=== PATIENT | male | born 1960 | race Two or more races ===

== ENCOUNTER 2019-09-09 06:32 | Emergency (ER) | payer OTHER ==
[~2019-09-09] VITALS: Ht 195.6 cm; Wt 128.6 kg
[2019-09-09] MEDS ORDERED: HYDR25TA6 PO (06:39)
[2019-09-09] MEDS ORDERED: ENAL5TAB PO (06:39)
--- NOTE | 2019-09-09 06:55 | NUR ---
REPORT RECEIVED FROM CADEN DAVENPORT.
[2019-09-09] MEDS ORDERED: KETOROLAC 30 MG/1 ML ONE (07:26)
[2019-09-09] MEDS ORDERED: KETOROLAC 30 MG/1 ML IM ONE (07:30)
--- NOTE | 2019-09-09 07:30 | NUR ---
PT MEDICATED PER EMAR. PT TOLERATED WELL. PT'S AOX4. RESPS EVEN AND UNLABORED.
[2019-09-09 07:56] LABS: BASOPHILS # (AUTO) 0.04 x10^3/uL (0-0.1); BASOPHILS % (AUTO) 1 % (0-1); EOSINOPHILS # (AUTO) 0.23 x10^3/uL (0-0.4); EOSINOPHILS % (AUTO) 4 % (1-7); LYMPHOCYTES # (AUTO) 1.92 x10^3/uL (1-3.4); LYMPHOCYTES % (AUTO) 36 % (22-44); MD NO; MEAN CORPUSCULAR HEMOGLOBIN 30.8 pg (27.5-34.5); MEAN CORPUSCULAR HGB CONC 32.7 g/dL (33.2-36.2); MEAN CORPUSCULAR VOLUME 94.3 fL (81-97); MEAN PLATELET VOLUME 7.4 fL (7.4-10.4); MONOCYTES # (AUTO) 0.46 x10^3/uL (0.2-0.8); MONOCYTES % (AUTO) 9 % (2-9); NEUTROPHILS # (AUTO) 2.73 x10^3/uL (1.8-6.8); NEUTROPHILS % (AUTO) 51 % (42-75); PLATELET COUNT 278 x10^3/uL (130-400); RED BLOOD COUNT 4.43 x10^6/uL (4.38-5.82); RED CELL DISTRIBUTION WIDTH 15.2 % (9.4-14.8)
[2019-09-09 08:02] VITALS: BP 154/106
--- NOTE | 2019-09-09 08:06 | NUR ---
pt resting in [facility]. pt stated"pain is almost gone". pt's aox4. resps even and unlabored. bp/spo2 monitors in place. call light within reach.
[2019-09-09 08:08] LABS: ANION GAP 7 mmol/L (5-15); CALCIUM 9.1 mg/dL (8.5-10.1); CHLORIDE 108 mmol/L (98-107); CREATININE 1.05 mg/dL (0.7-1.3)
[2019-09-09 08:12] LABS: TROPONIN I < 0.015 ng/mL (0.000-0.045)
--- NOTE | 2019-09-09 08:56 | NUR ---
Patient given discharge instructions and they have confirmed that they understand the instructions. Patient ambulatory with steady gait.
== END 2019-09-09 08:57 | disposition home or self-care (01) ==
LOC: ED 07:20
DX: S46.012A Strain of muscle(s) and tendon(s) of the rotator cuff of left shoulder, initial encounter (principal); M54.2 Cervicalgia; R94.31 Abnormal electrocardiogram [ECG] [EKG]; I10 Essential (primary) hypertension; Z87.891 Personal history of nicotine dependence; X58.XXXA Exposure to other specified factors, initial encounter; Y93.89 Activity, other specified; Y92.89 Other specified places as the place of occurrence of the external cause; Y99.8 Other external cause status
CPT/HCPCS: 36415; 71045; 73020; 80048; 84484; 85025; 93005; 96372; 99285; J1885